=== PATIENT | male | born 1980 | race Asian ===

== ENCOUNTER 2018-11-30 15:02 | Emergency (ER) | payer OTHER ==
[~2018-11-30] VITALS: Ht 170.2 cm; Wt 158.8 kg
[~2018-11-30 15:02] MED LIST: NASONEX50 MCG/AC; VIT D GUMMIE400 UNIT OR
[2018-11-30 17:00] VITALS: BP 163/95; TEMP 98.4
== END 2018-11-30 17:00 | disposition home or self-care (01) ==
LOC: ED 15:02
DX: T63.301A Toxic effect of unspecified spider venom, accidental (unintentional), initial encounter (principal); Y92.89 Other specified places as the place of occurrence of the external cause
CPT/HCPCS: 99282

== ENCOUNTER 2019-06-28 12:18 | Emergency (ER) | payer OTHER ==
[~2019-06-28] VITALS: Ht 170.2 cm; Wt 158.8 kg
[2019-06-28 14:00] VITALS: BP 131/95; TEMP 97.6
== END 2019-06-28 14:08 | disposition home or self-care (01) ==
LOC: ED 12:18
DX: S53.492A Other sprain of left elbow, initial encounter (principal); X50.9XXA Other and unspecified overexertion or strenuous movements or postures, initial encounter; Y92.89 Other specified places as the place of occurrence of the external cause
CPT/HCPCS: 96372; 99283; J1885

== ENCOUNTER 2019-08-16 11:02 | Emergency (ER) | payer OTHER ==
[~2019-08-16] VITALS: Ht 170.2 cm; Wt 133.4 kg
[2019-08-16 11:13] VITALS: TEMP 97.9
[2019-08-16 13:56] VITALS: BP 115/75
== END 2019-08-16 13:57 | disposition home or self-care (01) ==
LOC: ED 11:02
DX: S92.492A Other fracture of left great toe, initial encounter for closed fracture (principal); W22.8XXA Striking against or struck by other objects, initial encounter; Y93.89 Activity, other specified; Y92.89 Other specified places as the place of occurrence of the external cause
CPT/HCPCS: 99283

== ENCOUNTER 2020-06-21 05:41 | Emergency (ER) | payer OTHER ==
[~2020-06-21] VITALS: Ht 170.2 cm; Wt 124.7 kg
[2020-06-21 05:50] VITALS: TEMP 98.5
[2020-06-21 07:14] LABS: PLATELET COUNT 349 K/uL (142-355)
[2020-06-21 07:21] LABS: POTASSIUM 3.4 mmol/L (3.6-5.2); SODIUM 139 mmol/L (136-145)
[2020-06-21 08:07] VITALS: BP 146/62
== END 2020-06-21 08:08 | disposition home or self-care (01) ==
LOC: ED 05:41
PROVIDERS: Family Medicine
DX: R42 Dizziness and giddiness (principal); W18.39XA Other fall on same level, initial encounter; Y92.89 Other specified places as the place of occurrence of the external cause
CPT/HCPCS: 80053; 80307; 81000; 82550; 82553; 83605; 84484; 85027; 99283

== ENCOUNTER 2020-07-08 09:33 | Emergency (ER) | payer OTHER ==
[~2020-07-08] VITALS: Ht 170.2 cm; Wt 124.7 kg
[2020-07-08 09:44] VITALS: TEMP 98.4
[2020-07-08 10:19] LABS: PLATELET COUNT 318 K/uL (142-355)
[2020-07-08 10:38] LABS: POTASSIUM 3.5 mmol/L (3.6-5.2)
[2020-07-08 11:35] VITALS: BP 168/96
== END 2020-07-08 11:37 | disposition home or self-care (01) ==
LOC: ED 09:33
PROVIDERS: Hospitalist
DX: K21.9 Gastro-esophageal reflux disease without esophagitis (principal); K29.60 Other gastritis without bleeding; S93.691A Other sprain of right foot, initial encounter; S93.491A Sprain of other ligament of right ankle, initial encounter; W17.89XA Other fall from one level to another, initial encounter; Y92.89 Other specified places as the place of occurrence of the external cause
CPT/HCPCS: 80053; 81000; 82150; 83690; 85027; 93005; 96374; 99284; J2405

== ENCOUNTER 2020-07-12 08:35 | Emergency (ER) | payer OTHER ==
[~2020-07-12] VITALS: Ht 170.2 cm; Wt 124.7 kg
[2020-07-12 08:47] VITALS: TEMP 98
[2020-07-12 09:50] LABS: PLATELET COUNT 307 K/uL (142-355)
[2020-07-12 10:00] VITALS: BP 123/92
[2020-07-12 10:01] LABS: POTASSIUM 3.6 mmol/L (3.6-5.2)
== END 2020-07-12 10:34 | disposition home or self-care (01) ==
LOC: ED 08:35
DX: I10 Essential (primary) hypertension (principal)
CPT/HCPCS: 80053; 85027; 93005; 99283

== ENCOUNTER 2020-07-20 09:41 | Emergency (ER) | payer OTHER ==
[~2020-07-20] VITALS: Ht 170.2 cm; Wt 124.7 kg
[2020-07-20 09:58] VITALS: TEMP 97.4
[2020-07-20 10:16] LABS: PLATELET COUNT 317 K/uL (142-355)
[2020-07-20 10:26] LABS: POTASSIUM 3.5 mmol/L (3.6-5.2)
[2020-07-20 10:53] LABS: PARTIAL THROMBOPLASTIN TIME 23.3 SECONDS (24.5-33.6)
[2020-07-20 13:14] VITALS: BP 189/92
== END 2020-07-20 13:27 | disposition home or self-care (01) ==
LOC: ED 09:41
PROVIDERS: Family Medicine
DX: S40.012A Contusion of left shoulder, initial encounter (principal); R51.9 Headache, unspecified; R42 Dizziness and giddiness; W18.39XA Other fall on same level, initial encounter; Y92.89 Other specified places as the place of occurrence of the external cause
CPT/HCPCS: 80053; 84484; 85027; 85610; 85730; 93005; 99283

== ENCOUNTER 2020-07-29 03:44 | Emergency (ER) | payer OTHER ==
[~2020-07-29] VITALS: Ht 167.6 cm; Wt 124.7 kg
[2020-07-29 03:48] VITALS: TEMP 98.2
[2020-07-29 04:38] LABS: PLATELET COUNT 303 K/uL (142-355)
[2020-07-29 04:51] LABS: POTASSIUM 3.5 mmol/L (3.6-5.2)
[2020-07-29 06:20] LABS: PARTIAL THROMBOPLASTIN TIME 18.1 SECONDS (24.5-33.6)
[2020-07-29 07:30] VITALS: BP 135/90
== END 2020-07-29 07:45 | disposition home or self-care (01) ==
LOC: ED 03:44
PROVIDERS: Family Medicine
DX: M62.82 Rhabdomyolysis (principal)
CPT/HCPCS: 36415; 80053; 80061; 81000; 82550; 82553; 82962; 84484; 85027; 85610; 85730; 93005; 96360; 96375; 99285; J1885; J3490

== ENCOUNTER 2020-08-27 03:40 | Emergency (ER) | payer OTHER ==
[~2020-08-27] VITALS: Ht 167.6 cm; Wt 124.7 kg
[2020-08-27 03:44] VITALS: TEMP 98.9
[2020-08-27 05:21] VITALS: BP 175/103
== END 2020-08-27 05:23 | disposition home or self-care (01) ==
LOC: ED 03:40
DX: M25.511 Pain in right shoulder (principal); W18.39XA Other fall on same level, initial encounter; Y92.89 Other specified places as the place of occurrence of the external cause
CPT/HCPCS: 96372; 99283; J1885; J2930

== ENCOUNTER → 2020-08-29 13:47 | Outpatient (CLI) | payer OTHER | END | disposition home or self-care (01) | LOC: MRI 08-23 11:00 | PROVIDERS: ATTEND Physician Assistant | DX: R41.82 Altered mental status, unspecified (principal); R53.1 Weakness; R41.3 Other amnesia; I10 Essential (primary) hypertension | CPT/HCPCS: 36415; 82565; 84520; A9576 ==

== ENCOUNTER 2020-10-11 11:31 | Outpatient (CLI) | payer OTHER | END 2020-10-11 19:35 | disposition home or self-care (01) | LOC: US 11:31 | PROVIDERS: ATTEND Physician Assistant | DX: R60.0 Localized edema (principal); R41.3 Other amnesia; I10 Essential (primary) hypertension; D49.2 Neoplasm of unspecified behavior of bone, soft tissue, and skin ==

== ENCOUNTER 2020-11-30 09:19 | Outpatient (CLI) | payer OTHER | END 2020-11-30 22:39 | disposition home or self-care (01) | LOC: RESP 09:19 | PROVIDERS: ATTEND Physician Assistant | DX: R60.0 Localized edema (principal); R41.82 Altered mental status, unspecified ==

== ENCOUNTER 2022-04-03 09:52 | Outpatient (CLI) | payer OTHER | END 2022-04-03 20:51 | disposition home or self-care (01) | LOC: LABW 09:52 | PROVIDERS: ATTEND Podiatrist | DX: M79.605 Pain in left leg (principal); B35.1 Tinea unguium | CPT/HCPCS: 36415; 84450; 84460 ==

== ENCOUNTER 2022-04-23 13:13 | Emergency (ER) | payer OTHER ==
[~2022-04-23] VITALS: Ht 167.6 cm; Wt 131.5 kg
[2022-04-23 13:20] VITALS: TEMP 98
[2022-04-23 15:21] VITALS: BP 128/77
== END 2022-04-23 15:22 | disposition home or self-care (01) ==
LOC: ED 13:13
DX: S00.03XA Contusion of scalp, initial encounter (principal); S16.1XXA Strain of muscle, fascia and tendon at neck level, initial encounter; W01.198A Fall on same level from slipping, tripping and stumbling with subsequent striking against other object, initial encounter; Y92.89 Other specified places as the place of occurrence of the external cause
CPT/HCPCS: 99283

== ENCOUNTER 2022-05-05 18:56 | Observation (INO) | payer OTHER ==
[~2022-05-05] VITALS: Ht 182.9 cm; Wt 130.4 kg
[2022-05-05 19:00] VITALS: BP 184/108; TEMP 99.2
[2022-05-05 20:30] VITALS: BP 158/92
[2022-05-05 20:34] LABS: PLATELET COUNT 301 K/uL (142-355)
[2022-05-05 21:00] VITALS: BP 162/99
[2022-05-05 21:30] VITALS: BP 181/91
[2022-05-05 22:00] VITALS: BP 190/101
[2022-05-06] VITALS (7 sets, daily range): BP systolic 118–152; BP diastolic 71–88; TEMP 97.7–98.6; Ht 182.9 cm; Wt 130.4 kg
[2022-05-06 05:11] LABS: PLATELET COUNT 288 K/uL (142-355)
[2022-05-06 05:16] LABS: POTASSIUM 3.4 mmol/L (3.6-5.2)
[2022-05-06] MEDS ORDERED: ASPIRIN 8181 MG PO (09:07)
[2022-05-06] MEDS ORDERED: LORA0.5T17 PO (09:09)
[2022-05-06] MEDS ORDERED: CYAN10009 IM (09:11)
[2022-05-06] MEDS ORDERED: GABA100C2 PO (09:12)
[2022-05-06] MEDS ORDERED: FURO40TA93 PO (09:13)
[2022-05-06] MEDS ORDERED: KLOR-CON M1010 MEQ PO (09:13)
[2022-05-06] MEDS ORDERED: METO25TA2 PO (09:14)
[2022-05-06] MEDS ORDERED: ZESTRIL40 MG PO (09:14)
[2022-05-06] MEDS ORDERED: SENNA LAX8.6 MG PO (09:15)
[2022-05-06] MEDS ORDERED: TRAMADOL HYDROC50 MG PO (09:16)
[2022-05-06 17:32] LABS: POTASSIUM 3.5 mmol/L (3.6-5.2)
[2022-05-07 03:56] VITALS: BP 144/82; TEMP 98.5
[2022-05-07 08:00] VITALS: BP 163/89; TEMP 99
[2022-05-07] MEDS ORDERED: FURO40TA93 PO (11:46)
[2022-05-07] MEDS ORDERED: POTASSIUM CHLO20 ME1 PO (11:47)
[2022-05-07] MEDS ORDERED: METO50TA63 PO (11:49)
[2022-05-07 12:00] VITALS: BP 151/73; TEMP 98.5
== END 2022-05-07 13:30 | disposition home or self-care (01) ==
LOC: ED 18:56 → MED/SURG 22:00
PROVIDERS: Internal Medicine; ADMIT Emergency Medicine Emergency Medical Services; ATTEND Internal Medicine
DX: L03.116 Cellulitis of left lower limb (principal); L03.115 Cellulitis of right lower limb; R60.0 Localized edema; Z86.73 Personal history of transient ischemic attack (TIA), and cerebral infarction without residual deficits; I73.89 Other specified peripheral vascular diseases; I25.10 Atherosclerotic heart disease of native coronary artery without angina pectoris; M79.662 Pain in left lower leg; M79.661 Pain in right lower leg; I11.0 Hypertensive heart disease with heart failure; I50.9 Heart failure, unspecified; G62.89 Other specified polyneuropathies
CPT/HCPCS: 36415; 36416; 80048; 80053; 80202; 82948; 83605; 85027; 85379; 85610; 87040; 87635; 96360; 96365; 96366; 96367; 96372; 96374; 96375; 99220; 99284; G0378; J1650; J1940; J2270; J2405; J3370; U0003

== ENCOUNTER 2022-07-28 12:56 | Outpatient (CLI) | payer OTHER ==
[~2022-07-28 12:56] MED LIST changes: +ASPIRIN 8181 MG PO; +CYAN10009 IM; +FURO40TA93 PO; +GABA100C2 PO; +KLOR-CON M1010 MEQ PO; +LORA0.5T17 PO; +METO25TA2 PO; +METO50TA63 PO; +POTASSIUM CHLO20 ME1 PO; +SENNA LAX8.6 MG PO; +TRAMADOL HYDROC50 MG PO; +ZESTRIL40 MG PO
== END 2022-07-28 21:38 | disposition home or self-care (01) ==
LOC: LABW 12:56
PROVIDERS: ATTEND Podiatrist
DX: B35.1 Tinea unguium (principal)
CPT/HCPCS: 36415; 84450; 84460

== ENCOUNTER 2023-03-17 10:29 | Outpatient (CLI) | payer OTHER | END 2023-03-17 19:04 | disposition home or self-care (01) | LOC: RAD 10:29 | PROVIDERS: ATTEND Nurse Practitioner Family | DX: R07.89 Other chest pain (principal) ==

== ENCOUNTER 2023-04-06 09:13 | Outpatient (CLI) | payer OTHER | END 2023-04-06 21:23 | disposition home or self-care (01) | LOC: US 09:13 | PROVIDERS: ATTEND Nurse Practitioner Family | DX: I89.0 Lymphedema, not elsewhere classified (principal); Z86.73 Personal history of transient ischemic attack (TIA), and cerebral infarction without residual deficits ==

== ENCOUNTER 2023-04-07 12:41 | Outpatient (CLI) | payer OTHER | END 2023-04-07 20:47 | disposition home or self-care (01) | LOC: US 12:41 | PROVIDERS: ATTEND Nurse Practitioner Family | DX: R07.89 Other chest pain (principal); R32 Unspecified urinary incontinence; I89.0 Lymphedema, not elsewhere classified; Z86.73 Personal history of transient ischemic attack (TIA), and cerebral infarction without residual deficits | CPT/HCPCS: 51798; 93005 ==